=== PATIENT | male | born 1930 | race Caucasian/White ===

== ENCOUNTER 2017-08-30 14:24 | Emergency (ER) | payer MEDICARE, OTHER ==
[~2017-08-30] VITALS: Ht 185.4 cm; Wt 95.0 kg
[2017-08-30 14:31] VITALS: BP 171/87; PULSE 75; RESP 20; TEMP 98.2; O2SAT 97
--- NOTE | 2017-08-30 14:44 | PD ---
HPI Chief Complaint: Psychiatric Symptoms Time Seen by Provider: 14:36 Travel History International Travel<30 days: No Contact w/Intl Traveler<30days: No Traveled to known affect area: No History of Present Illness HPI 87-year-old male presents to emergency department accompanied by law enforcement under Lau act. According to law enforcement report the patient is in beginning stages of dementia and is progressively worsening per the family. The subject is becoming increasingly hostile and argumentative. During arguments the patient refers to his now sees firearm. Yesterday during an argument with his the subject stated he would end it with the firearm. Today the fire made in appearance unknown how or why but the subject talks about and knows location of the gun at all times and is concerned to and adult children. Subject tries to placate everyone. On my examination the patient is alert and is oriented to self and place only. When I asked him questions it is difficult to redirect the patient answered the questions that I asked. He keeps talking about how much he lives his and that he wants to be at home with his . he denies suicidal or homicidal ideations. Denies illicit drug use, alcohol use. Denies auditory visual hallucinations. Has no emergent medical complaints. Denies chest pain, shortness of breath, abdominal pain, change in urine or stool. He keeps saying that his right shoulder hurts and is guarding it. Symptom onset unknown. Duration chronic. No known aggravating or relieving factors. Symptoms are moderate to severe in severity. Says he does not take any medications and says he is very healthy. Denies significant past medical history. No known allergies. No other modifying factors or associated signs and symptoms. 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 HEAD: Atraumatic. Normocephalic. EYES: Pupils equal and round. ENT: Mucosa pink and moist. NECK: Supple. Trachea midline. CARDIOVASCULAR: Regular rate and rhythm. No murmur appreciated. RESPIRATORY: No accessory muscle use. Clear to auscultation. Breath sounds equal bilaterally. GASTROINTESTINAL: Abdomen soft, non-tender, nondistended. Hepatic and splenic margins not palpable. Bowel sounds are active 4 quadrants. MUSCULOSKELETAL: Right shoulder with tenderness on palpation; without erythema, edema; possible ecchymosis noted to the upper biceps area; patient guarding and unable to assess range of motion; no obvious deformity; shoulders equal. No obvious deformities. No clubbing. No cyanosis. No edema. BACK: No CVA tenderness. NEUROLOGICAL: Awake and alert. Oriented 3. No obvious cranial nerve deficits. Motor grossly within normal limits. Normal speech. Moves all extremities. 5/5 strength to all extremities. PSYCHIATRIC: Delusional thought processes. No hallucinations. Data Data Last Documented VS Vital Signs Date Time Temp Pulse Resp B/P (MAP) Pulse Ox O2 Delivery O2 Flow Rate FiO2 08/31/17 06:20 59 18 162/75 (104) 96 Room Air 08/30/17 14:31 98.2 Orders Orders Complete Blood Count With Diff (08/30/17 14:36) Comprehensive Metabolic Panel (08/30/17 14:36) Thyroid Stimulating Hormone (08/30/17 14:36) Urinalysis - C+S If Indicated (08/30/17 14:36) Psych Screen (08/30/17 14:36) Drug Screen, Random Urine (08/30/17 14:36) Alcohol (Ethanol) (08/30/17 14:36) Salicylates (Aspirin) (08/30/17 14:36) Tylenol (Acetaminophen) (08/30/17 14:36) Ct Brain W/O Iv Contrast(Rout) (08/30/17 ) Diet Regular Basic (08/30/17 Dinner) Shoulder, Complete (>2vws) (08/30/17 ) Labs Laboratory Tests Test 08/30/17 14:42 White Blood Count 6.4 TH/MM3 Red Blood Count 4.61 MIL/MM3 Hemoglobin 15.0 GM/DL Hematocrit 44.1 % Mean Corpuscular Volume 95.8 FL Mean Corpuscular Hemoglobin 32.6 PG Mean Corpuscular Hemoglobin Concent 34.0 % Red Cell Distribution Width 14.0 % Platelet Count 200 TH/MM3 Mean Platelet Volume 9.6 FL Neutrophils (%) (Auto) 64.3 % Lymphocytes (%) (Auto) 18.7 % Monocytes (%) (Auto) 14.1 % Eosinophils (%) (Auto) 2.4 % Basophils (%) (Auto) 0.5 % Neutrophils # (Auto) 4.1 TH/MM3 Lymphocytes # (Auto) 1.2 TH/MM3 Monocytes # (Auto) 0.9 TH/MM3 Eosinophils # (Auto) 0.2 TH/MM3 Basophils # (Auto) 0.0 TH/MM3 CBC Comment DIFF FINAL Differential Comment Blood Urea Nitrogen 29 MG/DL Creatinine 1.31 MG/DL Random Glucose 114 MG/DL Total Protein 7.5 GM/DL Albumin 3.5 GM/DL Calcium Level 9.5 MG/DL Alkaline Phosphatase 77 U/L Aspartate Amino Transf (AST/SGOT) 26 U/L Alanine Aminotransferase (ALT/SGPT) 44 U/L Total Bilirubin 0.6 MG/DL Sodium Level 142 MEQ/L Potassium Level 4.1 MEQ/L Chloride Level 109 MEQ/L Carbon Dioxide Level 21.2 MEQ/L Anion Gap 12 MEQ/L Estimat Glomerular Filtration Rate 52 ML/MIN Thyroid Stimulating Hormone 3rd Gen 3.830 uIU/ML Salicylates Level LESS THAN 1.7 MG/DL Acetaminophen Level LESS THAN 2.0 MCG/ML Ethyl Alcohol Level LESS THAN 3 MG/DL MDM Medical Decision Making Medical Screen Exam Complete: Yes Emergency Medical Condition: Yes Medical Record Reviewed: Yes Differential Diagnosis Dementia, Alzheimer's disease, medical clearance for psychological evaluation Narrative Course Shoulder X-Ray 08/30/17 0000 Signed Impressions: CONCLUSION: 1. Findings consistent with chronic rotator cuff abnormality and prominent AC joint osteoarthritis. Head CT 08/30/17 0000 Signed Impressions: CONCLUSION: 1. No acute intracranial hemorrhage. 2. Bilateral cortical atrophy. Patient presents under a Lau act. Physical examination and vital signs are essentially unremarkable. Patient has no medical complaints to report. Psych screen has been ordered. If the laboratory results are unremarkable, the patient will be medically cleared for psychiatric evaluation and disposition. CT head, right shoulder x-ray ordered. Diagnosis Primary Impression: Medical clearance for psychiatric admission Additional Impressions: Elevated TSH Osteoarthritis of right shoulder Qualified Codes: M19.011 - Primary osteoarthritis, right shoulder chronic right Rotator cuff abnormality Additional Instructions: Follow-up with primary care provider in regards to elevated TSH Condition: Stable Keyla Haile Aug 30, 2017 14:44
--- NOTE | 2017-08-30 15:15 | RADRPT ---
EXAM DATE: 08/30/2017 3:01 PM EDT AGE/SEX: 87 years / Male INDICATIONS: Altered mental status. CLINICAL DATA: This is the patient's initial encounter. Patient reports that signs and symptoms have been present for 1 day and indicates a pain score of 0/10. MEDICAL/SURGICAL HISTORY: Cerebrovascular disease. None. RADIATION DOSE: 46.18 CTDI (mGy) COMPARISON: No prior exams available for comparison. TECHNIQUE: CT of the head without contrast. Using automated exposure control and adjustment of the mA and/or kV according to patient size, radiation dose was kept as low as reasonably achievable to ob tain optimal diagnostic quality images. DICOM format image data is available electronically for revi ew and comparison. FINDINGS: Cerebrum: The ventricles are normal for age. No evidence of midline shift, mass lesion, hemorrhage or acute infarction. Bilateral cortical atrophy consistent with patient's age. No extraaxial fluid c ollections are seen. Posterior Fossa: The cerebellum and brainstem are intact. The 4th ventricle is midline. The cerebe llopontine angle is unremarkable. Extracranial: The visualized portion of the orbits is intact. Skull: The calvaria is intact. No evidence of skull fracture. CONCLUSION: 1. No acute intracranial hemorrhage. 2. Bilateral cortical atrophy. Electronically signed by: Rai Jackson MD 08/30/2017 3:13 PM EDT
[2017-08-30 15:22] LABS: AUTOMATED NEUTROPHIL # 4.1 TH/MM3 (1.8-7.7); BASOPHIL % 0.5 % (0.0-2.0); EOSINOPHIL # 0.2 TH/MM3 (0-0.4); EOSINOPHIL % 2.4 % (0.0-4.0); HEMATOCRIT 44.1 % (39.0-51.0); LYMPH % 18.7 % (9.0-44.0); LYMPHOCYTE # 1.2 TH/MM3 (1.0-4.8); MEAN CELL VOLUME 95.8 FL (80.0-100.0); MEAN CORPUSCULAR HEMOGLOBIN 32.6 PG (27.0-34.0); MEAN PLATELET VOLUME 9.6 FL (7.0-11.0); MONO % 14.1 % (0.0-8.0); MONOCYTE # 0.9 TH/MM3 (0-0.9); NEUT % 64.3 % (16.0-70.0); PLATELET COUNT 200 TH/MM3 (150-450); RED BLOOD COUNT 4.61 MIL/MM3 (4.50-5.90); WHITE BLOOD COUNT 6.4 TH/MM3 (4.0-11.0)
[2017-08-30 15:44] LABS: ALBUMIN 3.5 GM/DL (3.4-5.0); ALT (GPT) 44 U/L (12-78); AST (GOT) 26 U/L (15-37); BICARBONATE 21.2 MEQ/L (21.0-32.0); BLOOD UREA NITROGEN 29 MG/DL (7-18); CALCIUM 9.5 MG/DL (8.5-10.1); CHLORIDE 109 MEQ/L (98-107); CREATININE 1.31 MG/DL (0.60-1.30); GLOMERULAR FILTRATION RATE 52 ML/MIN (>89); GLUCOSE,RANDOM 114 MG/DL (74-106); SODIUM (NA) 142 MEQ/L (136-145)
[2017-08-30 15:54] LABS: ALKALINE PHOSPHATASE 77 U/L (45-117); TOTAL BILIRUBIN ADULT 0.6 MG/DL (0.2-1.0); TOTAL PROTEIN 7.5 GM/DL (6.4-8.2)
[2017-08-30 16:01] LABS: ACETAMINOPHEN LESS THAN 2.0 MCG/ML (10.0-30.0)
--- NOTE | 2017-08-30 21:36 | RADRPT ---
EXAM DATE: 08/30/2017 9:23 PM EDT AGE/SEX: 87 years / Male INDICATIONS: Right shoulder pain. CLINICAL DATA: This is the patient's initial encounter. Patient reports that signs and symptoms have been present for 1 day and indicates a pain score of 6/10. MEDICAL/SURGICAL HISTORY: Cerebrovascular disease. None. COMPARISON: No prior exams available for comparison. FINDINGS: Bony structures are intact and in normal alignment. Prominent degenerative changes about the AC joint . High riding humeral head. Osseous density is normal. Soft tissues are unremarkable. No radiopaque foreign bodies seen. CONCLUSION: 1. Findings consistent with chronic rotator cuff abnormality and prominent AC joint osteoarthritis. Electronically signed by: Thony Giron MD 08/30/2017 9:35 PM EDT
[2017-08-31 06:20] VITALS: BP 162/75; PULSE 59; RESP 18; O2SAT 96
--- NOTE | 2017-08-31 09:58 | PD ---
History of Present Illness Chief Complaint: Psychiatric Symptoms Time Seen by Provider: 09:45 Travel History International Travel<30 Days: No Contact w/Intl Traveler<30days: No Known affected area: No Legal Status Legal Status: Lau Act Lau Act Signed By: Joe Alaniz History of Present Illness: History of Present Illness HPI 87-year-old male with reported history of dementia presents to emergency department accompanied by law enforcement under Lau act. According to law enforcement report the patient is becoming increasingly hostile and argumentative with his family. During arguments the patient talks about his firearm. Yesterday during an argument with his the subject stated he would end it with the firearm. Today , they were involved in another argument and he brought the firearm out. When asked about this incident, he does not deny it but states" I have pulled out that gun a dozen times before and my has never had a problem with it before". I have it in case someone comes in the house. I will never hurt myself or my . I love her ". EMR. No previous contact with [facility] psychiatry. The patient is seen in main ED. Awake, alert and oriented to person, knows he is in the hospital, partial orientation to time. Speech is clear, tends to be overinclusive in his responses with slight tangentiality. He does not appear internally stimulated. Mood is anxious over being here in the hospital. Denies any suicidal or homicidal ideation, intent or plan. He is advocating for his discharge.History is limited . Telephone call to his [place] at [phone]. No answer. I received a call from his son , Hugo who states he is the patient's POA. Son states that there are no guns in the home as they have been seized by the police.The patient was prescribed Namenda by his PCP approximately 6 months ago. He is trying to get hospice services in the home to provide some assistance. He further states that he is waiting for the air conditioner to be fixed in the home and requested to have his father remain in the hospital. I informed him that the patient does not meet criteria for BA at this time and that it is lifted.He is cleared for discharge from the ED. He will come and pick him up. PFSH Past Medical History Cerebrovascular Accident: Yes (CVA several mos. ago per family) Psychiatric History Psychiatric History Hx Psychiatric Treatment: DENIED History of Inpatient Treatment: No Guns or firearms in home: No (Taken by police) Social History Born in [place]. since 1953. Lives with his . 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 Hx Alcohol Use: No Hx Tobacco Use: No Hx Substance Use: No Hx of Substance Use Treatment: No Family Psychiatric History negative Allergies-Medications (Allergen,Severity, Reaction): Coded Allergies: No Known Allergies (Verified Allergy, Unknown, 08/30/17) Review of Systems ROS Limitations: Poor Historian Mental Status Examination Appearance: Disheveled Consciousness: Alert Orientation: Person, Place, Situation Motor Activity: Normal gait Speech: Unremarkable Language: Adequate Fund of Knowledge: Adequate Attention and Concentration: Inadequate Memory: Impaired Mood: Anxious Affect: Appropriate Thought Process & Associations: Intact, Logical, Goal directed Thought Content: Appropriate Hallucination Type: None Delusion Type: None Suicidal Ideation: No Suicidal Plan: No Suicidal Intention: No Homicidal Ideation: No Homicidal Plan: No Homicidal Intention: No Insight: Poor Judgment: Poor MDM Medical Decision Making Medical Record Reviewed: Yes Assessment/Plan 87-year-old male with reported history of dementia presents to emergency department accompanied by law enforcement under Lau act. According to law enforcement report the patient is becoming increasingly hostile and argumentative with his family. During arguments the patient talks about his firearm. Yesterday during an argument with his the subject stated he would end it with the firearm. Today , they were involved in another argument and he brought the firearm out. When asked about this incident, he does not deny it but states" I have pulled out that gun a dozen times before and my has never had a problem with it before". I have it in case someone comes in the house. I will never hurt myself or my . I love her ". BA is lifted. The patient does not meet criteria for inpatient psychiatric treatment. Weapons have been removed from the home. The son wants a referral for hospice to see if they qualify for assistance in the home. Instructed to follow up with PCP. Orders Orders Complete Blood Count With Diff (08/30/17 14:36) Comprehensive Metabolic Panel (08/30/17 14:36) Thyroid Stimulating Hormone (08/30/17 14:36) Urinalysis - C+S If Indicated (08/30/17 14:36) Psych Screen (08/30/17 14:36) Drug Screen, Random Urine (08/30/17 14:36) Alcohol (Ethanol) (08/30/17 14:36) Salicylates (Aspirin) (08/30/17 14:36) Tylenol (Acetaminophen) (08/30/17 14:36) Ct Brain W/O Iv Contrast(Rout) (08/30/17 ) Diet Regular Basic (08/30/17 Dinner) Shoulder, Complete (>2vws) (08/30/17 ) Results Vital Signs Date Time Temp Pulse Resp B/P (MAP) Pulse Ox O2 Delivery O2 Flow Rate FiO2 08/31/17 06:20 59 18 162/75 (104) 96 Room Air 08/30/17 14:31 98.2 75 20 171/87 (115) 97 Laboratory Tests Test 08/30/17 14:42 White Blood Count 6.4 Red Blood Count 4.61 Hemoglobin 15.0 Hematocrit 44.1 Mean Corpuscular Volume 95.8 Mean Corpuscular Hemoglobin 32.6 Mean Corpuscular Hemoglobin Concent 34.0 Red Cell Distribution Width 14.0 Platelet Count 200 Mean Platelet Volume 9.6 Neutrophils (%) (Auto) 64.3 Lymphocytes (%) (Auto) 18.7 Monocytes (%) (Auto) 14.1 Eosinophils (%) (Auto) 2.4 Basophils (%) (Auto) 0.5 Neutrophils # (Auto) 4.1 Lymphocytes # (Auto) 1.2 Monocytes # (Auto) 0.9 Eosinophils # (Auto) 0.2 Basophils # (Auto) 0.0 CBC Comment DIFF FINAL Differential Comment Blood Urea Nitrogen 29 Creatinine 1.31 Random Glucose 114 Total Protein 7.5 Albumin 3.5 Calcium Level 9.5 Alkaline Phosphatase 77 Aspartate Amino Transf (AST/SGOT) 26 Alanine Aminotransferase (ALT/SGPT) 44 Total Bilirubin 0.6 Sodium Level 142 Potassium Level 4.1 Chloride Level 109 Carbon Dioxide Level 21.2 Anion Gap 12 Estimat Glomerular Filtration Rate 52 Thyroid Stimulating Hormone 3rd Gen 3.830 Salicylates Level LESS THAN 1.7 Acetaminophen Level LESS THAN 2.0 Ethyl Alcohol Level LESS THAN 3 Diagnosis Primary Impression: Demaentia with behavioral disturbance Additional Impressions: Medical clearance for psychiatric admission Elevated TSH Psychiatrically Cleared: Yes Additional Instructions: Follow-up with primary care provider in regards to elevated TSH Med/ Other Pt Specific Info: No Change to Meds Disposition: 01 DISCHARGE HOME Condition: Stable Problem Qualifiers Rosey Weathers Aug 31, 2017 09:58
[2017-08-31 11:15] LABS: BILIRUBIN, URINE NEG (NEG); BLOOD, URINE NEG (NEG); GLUCOSE,URINE NEG (NEG); KETONE, URINE TRACE mg/dL (NEG); NITRITE,URINE NEG (NEG); URINE COLOR YELLOW (YELLW/STRAW); URINE LEUKOCYTE ESTERASE NEG (NEG)
[2017-08-31] MEDS ORDERED: NEOM0.1S4 EACH EYE (13:25)
== END 2017-08-31 13:54 | disposition home or self-care (01) ==
LOC: NEPD 14:24
DX: F03.91 Unspecified dementia, unspecified severity, with behavioral disturbance (principal); R94.6 Abnormal results of thyroid function studies; M19.011 Primary osteoarthritis, right shoulder; Z86.73 Personal history of transient ischemic attack (TIA), and cerebral infarction without residual deficits
CPT/HCPCS: 70450; 73030; 80053; 80307; 81001; 84443; 85025